=== PATIENT | male | born 1950 | race African-American/Black ===

== ENCOUNTER 2019-04-28 09:22 | Emergency (ER) | payer OTHER ==
[~2019-04-28] VITALS: Ht 167.6 cm; Wt 63.5 kg
[~2019-04-28 09:22] MED LIST: BENTYL 20 MG TA20 M1 PO; CYMBALTA30 MG PO; IBUPROFEN 800800 M1 PO; LIPITOR 20 MG T20 M1 PO; MAGOX 400400 MG PO; MIRALAX17 GM PO; NABUMETONE 500500 M1 PO; NAPROSYN500 MG PO; NEURONTIN 300300 M1 PO; NISOLDIPINE40 MG PO; TRIAMTERENE-HC1 EAC2 PO; TYLENOL325 MG PO
[2019-04-28 10:54] LABS: HEMATOCRIT 34.1 % (42.0-52.0); MCH 28.7 pg (26.0-34.0); MCHC 32.2 g/dL (28.0-37.0); MCV 89.3 fL (80.0-100.0); PLATELET COUNT 191 thou/uL (150-400); RBC 3.82 mil/uL (4.50-6.00); RDW 14.9 % (10.5-14.5); WBC 2.5 thou/uL (4.0-11.0)
[2019-04-28 11:10] LABS: CALCIUM 9.9 mg/dL (8.5-10.1); CREATININE 1.7 mg/dL (0.7-1.3); MAGNESIUM 1.7 mg/dL (1.8-2.4)
[2019-04-28 11:13] LABS: POTASSIUM 4.8 mmol/L (3.5-5.1)
[2019-04-28 11:31] LABS: ABSOLUTE NEUTROPHILS 1.6 thou/uL (1.4-8.2); PLATELET ESTIMATE NORMAL
[2019-04-28 11:36] LABS: URINE BILIRUBIN NEGATIVE (Negative); URINE BLOOD NEGATIVE (Negative); URINE CLARITY CLEAR; URINE COLOR YELLOW; URINE GLUCOSE-RANDOM* NEGATIVE (Negative); URINE KETONES NEGATIVE (Negative); URINE LEUKOCYTES-REFLEX NEGATIVE (Negative); URINE NITRITE-REFLEX NEGATIVE (Negative); URINE PROTEIN (DIPSTICK) NEGATIVE (Negative); URINE UROBILINOGEN 0.2 E.U./dl (0.2-1.0)
[2019-04-28 12:55] VITALS: BP 146/79
== END 2019-04-28 12:56 | disposition home or self-care (01) ==
LOC: ER 09:22
PROVIDERS: Emergency Medicine
DX: I95.1 Orthostatic hypotension (principal); R42 Dizziness and giddiness; Z86.73 Personal history of transient ischemic attack (TIA), and cerebral infarction without residual deficits; Z88.8 Allergy status to other drugs, medicaments and biological substances